=== PATIENT | male | born 1985 | race American Indian/Alaskan Native ===

== ENCOUNTER 2018-06-18 15:35 | Emergency (ER) | payer BC ==
[2018-06-18 16:00] VITALS: BP 124/54
[2018-06-18] MEDS ORDERED: DELTASONE PO ONE (17:45)
[2018-06-18] MEDS ORDERED: TORADOL IM ONE (17:45)
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
== END 2018-06-18 18:53 | disposition home or self-care (01) ==
LOC: ED 15:35
DX: S16.1XXA Strain of muscle, fascia and tendon at neck level, initial encounter (principal); Z87.891 Personal history of nicotine dependence; X50.0XXA Overexertion from strenuous movement or load, initial encounter; Y93.89 Activity, other specified; Y92.89 Other specified places as the place of occurrence of the external cause; Y99.8 Other external cause status
CPT/HCPCS: 96372; 99282; J1885; J7512